=== PATIENT | male | born 1960 | race Native Hawaiian/Other Pacific Islander ===

== ENCOUNTER 2021-01-03 22:23 | Emergency (ER) | payer OTHER ==
[~2021-01-03] VITALS: Ht 172.7 cm; Wt 90.7 kg
[2021-01-04 00:55] VITALS: BP 120/52; TEMP 98.6
== END 2021-01-04 00:55 | disposition home or self-care (01) ==
LOC: ED 22:23
PROC: 0HQ0XZZ Repair Scalp Skin, External Approach (ICD-10-PCS; principal; 2021-01-03)
DX: R55 Syncope and collapse (principal); S01.81XA Laceration without foreign body of other part of head, initial encounter; W18.39XA Other fall on same level, initial encounter; Y92.89 Other specified places as the place of occurrence of the external cause
CPT/HCPCS: 99283

== ENCOUNTER 2021-06-29 02:09 | Inpatient (IN) | payer OTHER ==
[2021-06-29] VITALS (7 sets, daily range): BP systolic 138–169; BP diastolic 67–97; TEMP 97.7–98.7; Ht 172.7 cm; Wt 93.9 kg
[~2021-06-29] VITALS: Ht 172.7 cm; Wt 93.9 kg
[2021-06-29] MEDS ORDERED: CLOTRIMAZOLE10 MG MT (02:31)
[2021-06-29 02:57] LABS: PLATELET COUNT 248 K/uL (142-355)
[2021-06-29 02:58] LABS: POTASSIUM 3.6 mmol/L (3.6-5.2)
[2021-06-29] MEDS ORDERED: AMOX500T5 PO (08:23)
[2021-06-29] MEDS ORDERED: AMLODIPINE BESYLATE PO ×2 (08:25→14:47)
[2021-06-29] MEDS ORDERED: LISI20TA11 PO (08:27)
[2021-06-29] MEDS ORDERED: MONTELUKAST SOD10 MG PO (08:28)
[2021-06-29] MEDS ORDERED: HYDROCHLOROT12.5 M1 PO (08:29)
[2021-06-29] MEDS ORDERED: AZELASTINE HCL0.1 % NAS (08:34)
[2021-06-29] MEDS ORDERED: ALLER-TEC10 MG PO (08:37)
[2021-06-29] MEDS ORDERED: IBU800 MG PO (08:38)
[2021-06-29 13:17] LABS: POTASSIUM 3.8 mmol/L (3.6-5.2)
== END 2021-06-29 15:15 | disposition home or self-care (01) | DRG 558 ==
LOC: ED 02:09 → MED/SURG 04:00
PROVIDERS: ADMIT Emergency Medicine; ATTEND Family Medicine
DX: M62.82 Rhabdomyolysis (principal); E87.1 Hypo-osmolality and hyponatremia; I10 Essential (primary) hypertension; F41.8 Other specified anxiety disorders; E87.8 Other disorders of electrolyte and fluid balance, not elsewhere classified; G47.09 Other insomnia
CPT/HCPCS: 36415; 80048; 80307; 80320; 82550; 83880; 84484; 85027; 87635; 93005; 96360; 96375; 99284; J2060; U0003